=== PATIENT | male | born 1990 | race African-American/Black ===

== ENCOUNTER 2019-09-27 02:21 | Emergency (ER) | payer BC ==
[~2019-09-27] VITALS: Ht 175.3 cm; Wt 127.0 kg
[2019-09-27 02:32] VITALS: Ht 175.3 cm; Wt 127.0 kg
[2019-09-27 05:42] VITALS: BP 138/72
== END 2019-09-27 05:42 | disposition short-term general hospital (02) ==
LOC: ED 02:21
DX: S02.85XA Fracture of orbit, unspecified, initial encounter for closed fracture (principal); S01.81XA Laceration without foreign body of other part of head, initial encounter; I10 Essential (primary) hypertension; Z88.0 Allergy status to penicillin; Y04.8XXA Assault by other bodily force, initial encounter; Y93.89 Activity, other specified; Y92.89 Other specified places as the place of occurrence of the external cause; Y99.8 Other external cause status
CPT/HCPCS: J0690; J2001; J2270; J2405; J7030